=== PATIENT | male | born 1960 | race African-American/Black ===

== ENCOUNTER 2017-06-13 20:15 | Emergency (ER) | payer OTHER ==
[~2017-06-13] VITALS: Ht 170.2 cm; Wt 77.1 kg
[~2017-06-13 20:15] MED LIST: IBUPROFEN600 MG ORAL
[2017-06-13 20:35] VITALS: BP 114/69
--- NOTE | 2017-06-13 20:47 | Emergency Room Report ---
History of Present Illness General Chief Complaint: Pain Source: Patient Present Illness HPI [id number] [employer] walk-in with pain to left ankle, swelling "knot" to lateral thigh and left shoulder s/p fall off truck 2 weeks ago, was 8 feet high at time. Denies hitting head, LOC Didnt go to ER at the time because "wasnt so bad." Pain with raising left arm above horizon Denies hip pain, pain to left femur Able to ambulate Not on AC, ASA Allergies: Coded Allergies: No Known Allergies (Unverified , 09/03/13) Patient History Past Medical History: none Past Surgical History: none Pertinent Family History: none Social History: Denies: alcohol use, drug use, smoking Immunizations: UTD Reviewed Nursing Documentation: PMH: Agreed, PSxH: Agreed Nursing Documentation-PMH Past Medical History: No Stated History Review of Systems All Other Systems: negative except mentioned in HPI Physical Exam Vital Signs Date Time Temp Pulse Resp B/P Pulse Ox O2 Delivery O2 Flow Rate FiO2 06/13/17 20:18 98.8 68 18 114/69 97 Room Air Sp02 EP Interpretation: reviewed, normal General Appearance: normal inspection, well appearing, no apparent distress, alert, GCS 15, non-toxic Head: normocephalic, atraumatic Eyes: bilateral eye EOMI, bilateral eye PERRL ENT: normal ENT inspection, hearing grossly normal, normal voice Neck: normal inspection, full range of motion, supple, no bony tend Respiratory: normal inspection, lungs clear, normal breath sounds, no respiratory distress, no retraction, no wheezing Cardiovascular #1: regular rate, rhythm, no edema Gastrointestinal: normal inspection, normal bowel sounds, non tender, soft, no guarding, no hernia Genitourinary: no CVA tenderness Musculoskeletal: other - Left ankle; medial aspect proximal to ankle there is visualized deformity, very ttp, ?fibula fx. Left lateral thigh: large 5cm hematoma. No ttp to left femur or hip. Left shoulder reduced ROM, elevation d/ t pain. 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, motor strength/tone normal, speech normal Psychiatric: normal inspection, judgement/insight normal, mood/affect normal Skin: normal inspection, normal color, no rash Medical Decision Making Diagnostic Impression: Primary Impression: Hematoma of left thigh Qualified Codes: S70.12XA - Contusion of left thigh, initial encounter Additional Impressions: Left ankle sprain Qualified Codes: S93.402A - Sprain of unspecified ligament of left ankle, initial encounter Left shoulder strain Qualified Codes: S46.912A - Strain of unspecified muscle, fascia and tendon at shoulder and upper arm level, left arm, initial encounter ER Course Left shoulder pain, left lateral thigh hematoma, left medial ankle pain - No acute traumatic injury on ED review of imaging - see blow - Left lateral thigh and medial ankle hematoma - advised compression, ICE, elevation - Hematomas not expanding. No compartment syndrome/pressure or affect on neurovasculature Rx Ibuprofen Strict PMD followup to evaluate hematomas Other X-Ray Diagnostic Results Other X-Ray Diagnostic Results : X-Ray ordered: Left shoulder # of Views/Limited Vs Complete: 3 View Indication: Pain EP Interpretation: Yes Interpretation: no dislocation, no soft tissue swelling, no fractures Impression: No acute disease Interpreting ER Provider: Electronically signed by DR Hamilton PA Scribe Text Left ankle 3 views No acute fx, dislocation or soft tissue swelling Electronically signed by Dr Hamilton tib-fib 2 views No acute fx, dislocation or soft tissue swelling Electronically signed by Dr Hamilton Last Vital Signs Date Time Temp Pulse Resp B/P Pulse Ox O2 Delivery O2 Flow Rate FiO2 06/13/17 20:35 98.8 18 114/69 97 Room Air 06/13/17 20:18 68 Status: improved Disposition: HOME, SELF-CARE Scripts Ibuprofen* (MOTRIN*) 600 Mg Tablet 600 MG ORAL THREE TIMES A DAY for 7 Days, #30 TAB 0 Refills Prov: ODALIS HAMILTON M.D. 06/13/17 ODALIS HAMILTON M.D. Jun 13, 2017 20:47
[2017-06-13] MEDS ORDERED: IBUPROFEN600 MG ORAL (21:53)
[2017-06-13 22:05] VITALS: BP 114/69
--- NOTE | 2017-06-14 10:53 | Diagnostic Imaging Report ---
Indication: PAIN Technique: 3 views of the left ankle Comparison: none Findings: There is minimal vascular calcification. No acute fractures. No dislocations. Joint spaces are preserved Impression: Negative This agrees with the preliminary interpretation provided by the emergency room physician.
--- NOTE | 2017-06-14 10:55 | Diagnostic Imaging Report ---
Indication: PAIN Technique: 2 views of the left tibia and fibula Comparison: none Findings: No acute fractures. No dislocations. No radiopaque foreign body demonstrated. Impression: Negative This agrees with the preliminary interpretation provided by the emergency room physician
--- NOTE | 2017-06-14 10:57 | Diagnostic Imaging Report ---
Indication: PAIN Technique: 3 views of the left shoulder Comparison: none Findings: No acute fractures. No dislocations. Joint spaces are preserved. There is a small inferior acromial spur Impression:Negative This agrees with the preliminary interpretation provided by the emergency room physician
== END 2017-06-13 22:00 | disposition home or self-care (01) ==
LOC: EMR 20:51
DX: S93.402A Sprain of unspecified ligament of left ankle, initial encounter (principal); S70.12XA Contusion of left thigh, initial encounter; S46.912A Strain of unspecified muscle, fascia and tendon at shoulder and upper arm level, left arm, initial encounter; W17.89XA Other fall from one level to another, initial encounter; Y92.89 Other specified places as the place of occurrence of the external cause
CPT/HCPCS: 99283